=== PATIENT | female | born 1995 | race Hispanic/Latino ===

== ENCOUNTER 2023-11-13 19:11 | Emergency (ER) | payer OTHER ==
[2023-11-13 19:57] LABS: Pregnancy Test - Urine (BHCG) Negative (Negative); Pregu Control Background? CLEAR/WHITE (CLR/WHITE); Pregu Control Bar Appear? YES (CONTROL BAR); Specific Gravity 1.025 (1.002-1.036)
[2023-11-13] MEDS ORDERED: Mag-Al Plus 1200/1200/120 MG (30 mL) UDCUP ONE (20:17)
[2023-11-13] MEDS ORDERED: Lidocaine Viscous Sol 2% 15 ml UD Cup ONE (20:18)
== END 2023-11-13 20:27 | disposition home or self-care (01) ==
LOC: MADERS 19:11
DX: K29.70 Gastritis, unspecified, without bleeding (principal); Z72.89 Other problems related to lifestyle
CPT/HCPCS: 81025; 99284